=== PATIENT | male | born 1985 | race Caucasian/White ===

== ENCOUNTER 2024-09-15 15:06 | Emergency (ER) | payer SELFPAY ==
[~2024-09-15] VITALS: Ht 188 cm; Wt 88.5 kg
[2024-09-15 15:06] VITALS: BP 158/100; PULSE 82; RESP 18; TEMP 98.4; O2SAT 98
[~2024-09-15 15:06] MED LIST: BENADRYL ONE; PEPCID ONE; PREDNISONE ONE
[2024-09-15] MEDS: EPINEPHRINE 1 MG/ML AMPUL SQ STA (15:35)
[2024-09-15] MEDS: BENADRYL IM STA (15:35)
[2024-09-15] MEDS: PREDNISONE PO STA (15:35)
[2024-09-15] MEDS: PEPCID PO STA (15:35)
[2024-09-15 16:32] VITALS: BP 146/88; PULSE 76; RESP 18; O2SAT 98
== END 2024-09-15 16:38 | disposition home or self-care (01) ==
LOC: ER 15:06
DX: T78.40XA Allergy, unspecified, initial encounter (principal); L50.9 Urticaria, unspecified; X58.XXXA Exposure to other specified factors, initial encounter
CPT/HCPCS: 99283; 96372; J1200; J7512